=== PATIENT | male | born 1955 | race Caucasian/White ===

== ENCOUNTER 2017-08-25 21:05 | Outpatient (CLI) | payer SELFPAY | END 2017-08-25 21:06 | disposition EMS.NT | LOC: EMS 21:05 | PROVIDERS: ATTEND Surgery | DX: S01.01XA Laceration without foreign body of scalp, initial encounter (principal); R47.81 Slurred speech; W07.XXXA Fall from chair, initial encounter; Y92.009 Unspecified place in unspecified non-institutional (private) residence as the place of occurrence of the external cause; Z72.89 Other problems related to lifestyle ==

== ENCOUNTER 2018-01-20 18:15 | Outpatient (CLI) | payer SELFPAY | END 2018-01-20 18:16 | disposition critical access hospital (66) | LOC: EMS 18:15 | PROVIDERS: ATTEND Surgery | DX: R56.9 Unspecified convulsions (principal); R51 Headache; R53.1 Weakness; R29.810 Facial weakness | CPT/HCPCS: A0425; A0427 ==

== ENCOUNTER 2018-01-20 18:38 | Emergency (ER) | payer SELFPAY ==
--- NOTE | 2018-01-20 18:47 | ED Physician Documentation ---
PD HPI FOCAL NEURO - Stated complaint Stated Complaint: SZ/WEAKNESS - Chief complaint Chief Complaint: Neuro - History obtained from History obtained from: Patient, EMS - History of Present Illness Timing - onset: Today (This is a 62-year-old gentleman with history of stroke in 2011 with right-sided symptoms it was preceded by seizure at the time. It sounds like he had bilateral carotid endarterectomy done then. His only prescription medication is aspirin. It was passed on to me by EMS that the family says he is a heavy drinker. Tonight around 545 he had a seizure for about 5 minutes which was followed with left facial droop and left-sided weakness. He says he had a mild headache earlier in the day but prior to that it was a normal day. He says he has not had a seizure since 2011 and is not maintained on antiepileptic drugs.) Review of Systems Ten Systems: 10 systems reviewed and negative Constitutional: denies: Fever, Chills Eyes: denies: Loss of vision, Decreased vision Ears: denies: Loss of hearing, Ear pain Nose: denies: Rhinorrhea / runny nose, Congestion Cardiac: denies: Chest pain / pressure, Palpitations Respiratory: denies: Dyspnea, Cough GI: denies: Abdominal Pain PD PAST MEDICAL HISTORY - Past Medical History Past Medical History: Yes Neuro: CVA - Present Medications Home Medications: Ambulatory Orders Medication Instructions Recorded Confirmed RX: Aspirin [Adult Aspirin Regimen] 1 tab PO DAILY 01/20/18 01/20/18 - Allergies Allergies/Adverse Reactions: Allergies Allergy/AdvReac Type Severity Reaction Status Date / Time No Known Drug Allergies Allergy Unverified 01/20/18 18:38 - Living Situation Living Situation: reports: With spouse/s.o. - Social History Does the pt smoke?: Yes Smoking Status: Current every day smoker Does the pt drink ETOH?: Yes ETOH Use: Beer, Liquor - Family History Family history: reports: Non contributory PD ED PE NORMAL - Vitals Vital signs reviewed: Yes (Hypertensive and tachycardic) - General General: Alert and oriented X 3, No acute distress - HEENT HEENT: PERRL, EOMI - Neck Neck: Supple, no meningeal sign, No bony TTP - Cardiac Cardiac: RRR, No murmur - Respiratory Respiratory: No respiratory distress, Clear bilaterally - Abdomen Abdomen: Normal bowel sounds, Soft, Non tender - Back Back: No CVA TTP, No spinal TTP - Derm Derm: Normal color, Warm and dry - Extremities Extremities: No edema, No calf tenderness / cord - Neuro Neuro: Alert and oriented X 3, Normal speech Eye Opening: Spontaneous Motor: Obeys Commands Verbal: Oriented GCS Score: 15 NIHSS - Time Time: 18:40 - Level of Consciousness Level of consciousness: (0) Alert, Keenly responsive LOC Questions: (0) Answers both Q's correct LOC Commands: (0) Performs both correctly - Gaze Best Gaze: (0) Normal - Visual Visual: (0) No loss - Facial Palsy Facial Palsy: (1) Minor paralysis (On the left) - Motor Arms (both separate) Motor Arm (right): (0) No drift Motor Arm (left): (1) Drift - Motor Legs (both separate) Motor Leg (right): (0) No drift Motor Leg (left): (1) Drift - Limb Ataxia Limb Ataxia: (0) Absent - Sensory Sensory: (1) Kesk-rh-voyjwezs loss - Best Language Best Language: (0) No aphasia - Dysarthria Dysarthria: (0) Normal - Extinction and Inattention (formally neg Extinction and inattention: (0) No abnormality - Total Score/Results Total Score/Result: 4 Results - Vitals Vitals: Vital Signs - 24 hr 01/20/18 01/20/18 01/20/18 18:38 19:12 20:04 Temperature 36.7 C Heart Rate 111 H 106 H 92 Respiratory 18 22 22 Rate Blood Pressure 231/116 H 209/107 H 213/106 H O2 Saturation 95 95 96 01/20/18 01/20/18 21:05 22:00 Temperature Heart Rate 86 90 Respiratory 15 22 Rate Blood Pressure 209/107 H 192/117 H O2 Saturation 96 92 Oxygen O2 Source Room air - EKG (time done) 1901 Rate: Rate (enter#) (105) Rhythm: Sinus tachycardia, LAE [place]: Normal Intervals: Normal DC QRS: Normal Ischemia: Q waves (waves) Computer interpretation: Agree with computer - Labs Labs: Laboratory Tests 01/20/18 01/20/18 01/20/18 18:45 18:45 18:45 WBC 9.8 RBC 5.42 Hgb 19.2 H Hct 55.6 H MCV 102.7 H MCH 35.5 H MCHC 34.6 RDW 14.9 Plt Count 273 MPV 7.5 Neut # (Auto) 5.8 Lymph # (Auto) 2.6 [place] # (Auto) 0.9 Eos # (Auto) 0.3 Baso # (Auto) 0.1 Absolute Nucleated RBC 0.00 Nucleated RBC % 0.1 PT 11.9 INR 1.1 Sodium 139 Potassium 3.6 Chloride 103 Carbon Dioxide 28 Anion Gap 8.0 BUN 10 Creatinine 0.7 Estimated GFR (MDRD) 114 Glucose 170 H Calcium 9.2 Total Bilirubin 0.6 AST 18 ALT 12 Alkaline Phosphatase 130 H Total Protein 7.3 Albumin 3.1 L Globulin 4.2 Albumin/Globulin Ratio 0.7 L Lipase 72 H Ethyl Alcohol < 5.0 - Rads (name of study) CT Chest with contrast Radiology: EMP read contemporaneously (6.1 cm right upper lobe mass) CT Head Radiology: EMP read contemporaneously (No evidence of acute stroke, he does have an abnormality on the right side which could be old stroke but in discussion with the stroke neurologist it is atypical because it respects the hernandes-white boundary.) CT head with contrast Radiology: EMP read contemporaneously (Findings consistent with parenchymal and bony metastasis with the largest in the right posterior lateral frontal region measuring 2.5 cm. No associated hemorrhage or mass-effect at this time.) Single view chest Radiology: EMP read contemporaneously (Masslike lesion on the right side) PD MEDICAL DECISION MAKING - ED course ED course: 32-year-old gentleman with potential stroke preceded by seizure. Time of onset 5:45 PM tonight. Of note paramedics tell me he has already significantly improved here. They said he recently had a forced right gaze deviation when they initially evaluated him and could not move his left arm at all. At this point he still has some residual symptoms in the left arm, but no gaze deviation. The family relates to me that he has been trying to cut back on drinking lately and only had one beer tonight which is very light for him on a weekend. Given all of this, I suspect he had an alcohol withdrawal seizure followed by a Dhiraj's paralysis which is resolving. After my initial evaluation I just did discuss the case with Dr. Simms, stroke neurology at [facility] who did not immediately recommend TPA but she will view the CT images and call me back. She felt the CT images were actually not consistent with an old stroke because they respect the hernandes-white junction. About that time his chest x-ray was noted and looks very concerning for lung cancer. He was sent back for CT, to do contrast-enhanced head and chest. Results as shown. Bottom line, it seems like he probably has primary lung cancer with metastases to the head causing a seizure today. He was loaded with [employer] and [facility] was called again for potential transfer, Dr. Simms had told me previously that if it was a Brain tumor he would go to the neurosurgical services and they were paged. Case was discussed with the neurosurgeon and he deferred to the hospitalist for admission. He was accepted to [facility] by Dr. Canseco at 10 PM and cobras were completed. - Sepsis Event Vital Signs: Vital Signs - 24 hr 01/20/18 01/20/18 01/20/18 18:38 19:12 20:04 Temperature 36.7 C Heart Rate 111 H 106 H 92 Respiratory 18 22 22 Rate Blood Pressure 231/116 H 209/107 H 213/106 H O2 Saturation 95 95 96 01/20/18 01/20/18 21:05 22:00 Temperature Heart Rate 86 90 Respiratory 15 22 Rate Blood Pressure 209/107 H 192/117 H O2 Saturation 96 92 Oxygen O2 Source Room air Departure - Departure Disposition: 02 Transfer Acute Care Hosp Clinical Impression: Seizure, Lung cancer, Brain metastases Condition: Serious
[2018-01-20 18:51] LABS: BASOPHILS # (AUTO) 0.1 10^3/uL (0.0-0.1); BASOPHILS % (AUTO) 1.3 %; EOSINOPHILS # (AUTO) 0.3 10^3/uL (0.0-0.7); EOSINOPHILS % (AUTO) 3.6 %; HGB - HEMOGLOBIN 19.2 g/dL (14.0-18.0); LYMPHOCYTES # (AUTO) 2.6 10^3/uL (1.5-3.5); LYMPHOCYTES % (AUTO) 26.4 %; MEAN CORPUSCULAR HEMOGLOBIN 35.5 pg (27.0-31.0); MEAN CORPUSCULAR HGB CONC 34.6 g/dL (32.0-36.0); MEAN CORPUSCULAR VOLUME 102.7 fL (80.0-94.0); MEAN PLATELET VOLUME 7.5 fL (7.4-11.4); MONOCYTES # (AUTO) 0.9 10^3/uL (0.0-1.0); MONOCYTES % (AUTO) 9.4 %; NEUTROPHILS # (AUTO) 5.8 10^3/uL (1.5-6.6); NEUTROPHILS % (AUTO) 59.3 %; PLT - PLATELET COUNT 273 10^3/uL (130-450); RED BLOOD COUNT 5.42 10^6/uL (4.70-6.10); RED CELL DISTRIBUTION WIDTH 14.9 % (12.0-15.0); WHITE BLOOD COUNT 9.8 x10^3/uL (4.8-10.8)
[2018-01-20 19:04] LABS: ALBUMIN 3.1 g/dL (3.2-5.5); ALKALINE PHOSPHATASE 130 IU/L (42-121); ALT ALANINE AMINOTRANSFERASE 12 IU/L (10-60); AST ASPARTATE AMINOTRANSFERASE 18 IU/L (10-42); BILIRUBIN,TOTAL 0.6 mg/dL (0.2-1.0); BUN - BLOOD UREA NITROGEN 10 mg/dL (6-20); CALCIUM 9.2 mg/dL (8.5-10.3); CARBON DIOXIDE - CO2 28 mmol/L (21-32); CHLORIDE 103 mmol/L (101-111); CREATININE 0.7 mg/dL (0.6-1.2); GFR - MDRD 114 (>89); GLUCOSE 170 mg/dL (70-100); SODIUM 139 mmol/L (135-145); TOTAL PROTEIN 7.3 g/dL (6.7-8.2)
--- NOTE | 2018-01-20 19:04 | CT Report ---
Reason: CVA Procedure Date: 01/20/2018 Accession Number: [id number] / [id number] Procedure: CT - Head W/O Stroke Protocol CPT Code: FULL RESULT: EXAM: CT HEAD EXAM DATE: 01/20/2018 06:54 PM. CLINICAL HISTORY: Acute stroke protocol. History of seizures and stroke. COMPARISON: None. TECHNIQUE: Multiaxial CT images were obtained from the foramen magnum to the vertex. Reformats: Coronal. IV contrast: None. In accordance with CT protocol optimization, one or more of the following dose reduction techniques were utilized for this exam: automated exposure control, adjustment of mA and/or KV based on patient size, or use of iterative reconstructive technique. FINDINGS: Parenchyma: Areas of encephalomalacia in the right frontoparietal and anteroinferior right frontal cortex, likely representing sequela of remote infarct. Moderate patchy white matter hypoattenuation elsewhere, compatible with chronic small vessel ischemic change. No intraparenchymal hemorrhage, mass effect, or CT findings of evolving acute/subacute infarct. Mello-white differentiation is distinct. Extraaxial Spaces: Normal for age. No subdural or epidural collections identified. Ventricles: Normal in size and position. Sinuses and Orbits: Imaged paranasal sinuses, orbits, and mastoids show no significant abnormality. Bones: No evidence of fracture or calvarial defect. Other: Atherosclerotic calcifications in the bilateral cavernous internal carotid and vertebral arteries. IMPRESSION: 1. Probable remote infarcts in the right frontoparietal and anteroinferior right frontal cortex. 2. Moderate chronic microvascular angiopathy. 3. No CT evidence for acute intracranial abnormality. RADIA The above findings were discussed with Carlos Eduardo Yanez by Dr. Dee Dennis at 19:01 hrs on 01/20/18.
[2018-01-20 19:05] LABS: ALBUMIN/GLOBULIN RATIO 0.7 (1.0-2.2); INR 1.1 (0.8-1.2); LIPASE 72 U/L (22-51); PT - PROTHROMBIN TIME 11.9 secs (9.9-12.6)
--- NOTE | 2018-01-20 19:18 | XRAY Report ---
Reason: chest pain Procedure Date: 01/20/2018 Accession Number: [id number] / [id number] Procedure: XR - Chest 1 View X-Ray CPT Code: 69661 FULL RESULT: EXAM: CHEST RADIOGRAPHY EXAM DATE: 01/20/2018 07:00 PM. CLINICAL HISTORY: Chest pain. COMPARISON: None. TECHNIQUE: 1 view. FINDINGS: Lungs/Pleura: Masslike consolidation in the right perihilar region. No pleural effusion or pneumothorax. Mediastinum: Normal cardiomediastinal contour. Atherosclerotic calcifications within the aortic arch. Other: The bones are unremarkable. IMPRESSION: Masslike consolidation in the right perihilar region. If the patient has symptoms of infection, recommend follow-up imaging 6-8 weeks after treatment to ensure resolution. Otherwise, recommend contrast-enhanced CT chest to evaluate for infiltrate versus mass. RADIA
[2018-01-20] MEDS ORDERED: IOPAMIDOL-300 100 ML VIAL ONE (19:21)
[2018-01-20] MEDS ORDERED: IOPAMIDOL-300 100 ML VIAL IVP ONE (20:09)
--- NOTE | 2018-01-20 20:26 | CT Report ---
Reason: CVA sx, ?met Procedure Date: 01/20/2018 Accession Number: [id number] / [id number] Procedure: CT - Head W/ CPT Code: FULL RESULT: EXAM: CT HEAD WITH CONTRAST COMPARISON: CT head without, 01/20/2018. CLINICAL HISTORY: Stroke symptoms, concern for metastasis TECHNIQUE: Axial CT images were obtained from the foramen magnum to the vertex after intravenous contrast. In accordance with CT protocol optimization, one or more of the following dose reduction techniques were utilized for this exam: automated exposure control, adjustment of mA and/or KV based on patient size, or use of iterative reconstructive technique. FINDINGS: A blastic focus is demonstrated involving the left orbital roof (8, 17), measuring approximately 2 cm. Additional areas of bony irregularity are demonstrated, concerning for an additional small bony metastasis. There is parenchymal edema, with enhancing foci demonstrated: 1. Right lateral frontal measuring 2.5 cm (8, 30) 2. Right inferior frontal measuring 6 mm (8, 15) 3. Left cerebellar measuring 5 mm (8, 13). Visualized orbits, paranasal sinuses and mastoids are otherwise relatively unremarkable, there is a hypoplastic left maxillary sinus. IMPRESSION: Findings most concordant with parenchymal and bony metastasis, as detailed, largest in the right posterior lateral frontal region measuring 2.5 cm. No hemorrhage or mass-effect at this time.
--- NOTE | 2018-01-20 20:40 | CT Report ---
Reason: abn cxr Procedure Date: 01/20/2018 Accession Number: [id number] / [id number] Procedure: CT - Chest W/ CPT Code: FULL RESULT: EXAM: CT CHEST EXAM DATE: 01/20/2018 08:06 PM. CLINICAL HISTORY: Abnormal chest x-ray COMPARISONS: 01/20/2018 chest x-ray. TECHNIQUE: Routine helical CT imaging was performed through the chest. IV contrast: 100 mL Isovue-300. Reconstructions: Coronal and sagittal. In accordance with CT protocol optimization, one or more of the following dose reduction techniques were utilized for this exam: automated exposure control, adjustment of mA and/or KV based on patient size, or use of iterative reconstructive technique. FINDINGS: Lungs/Pleura: There is a 6.1 x 5.1 cm area of right upper lobe masslike airspace consolidation. This extends to the hilum. The left lung is clear. No pleural effusion or pneumothorax. Mediastinum: There is a 1.1 cm in short axis precarinal lymph node with several additional subcentimeter mediastinal lymph nodes. Normal heart size. Coronary artery and aortic calcifications present. No aortic aneurysm or dissection. Bones: Unremarkable. Visualized Abdomen: Large bowel diverticulosis. Other: None. IMPRESSION: 1. There is a 6.1 cm area of right upper lobe masslike airspace consolidation with borderline mediastinal lymphadenopathy. This may be secondary to pneumonia in the appropriate clinical context and may be followed up by chest x-ray after appropriate treatment interval. If clinical suspicion for malignancy is high then PET CT or tissue sampling recommended. 2. Coronary artery calcifications. RADIA
[2018-01-20] MEDS ORDERED: HYDROcod/ACETAM 5/325 MG TABLET PO STA (20:51)
[2018-01-20] MEDS ORDERED: levETIRAcetam INJ 1,000 MG in SODIUM CHLORIDE 0.9% 100ML 100 ML IV STA (20:51)
[2018-01-20] MEDS ORDERED: NICOTINE 21 MG PATCH TOP STA (20:51)
[2018-01-20] MEDS ORDERED: DEXAMETHASONE 10 MG/ML VIAL IVP STA (23:56)
[2018-01-21] MEDS ORDERED: METOPROLOL 5 MG/5 ML VIAL IVP STA (07:33)
--- NOTE | 2018-01-21 07:36 | ED Physician Documentation ---
ED Addendum - Addendum Addendum: 01/21/18 07:34 assumed care 7 AM 62 male seen yesterday for seizure and focal weakness and unfortunately found to have what appears to be primary lung cancer met to brain case d/w [facility] - pt accepted by hospitalist service, waiting on [facility] for bed confirmation still per Dr Yanez note pt is a heavy drinker - will watch for s/sx withdrawal also his blood pressure is insanely high - gave lopressor went to see pt he feels fine denies pain - no BAIRD CP etc his weakness has resolved, we talked about EtOH withdrawal - he says he has cut down recently - has no shakes etc at this time - he will let us know if any develop A&O X 3 PERRL EOMI RRR CTAB non focal neuro no facial droop, nl ext strength, nl EOMI will continue to wait for bed availability at [facility] 01/21/18 07:47
[2018-01-21] MEDS ORDERED: METOPROLOL TARTRATE 50 MG TABLET PO STA (08:15)
[2018-01-21] MEDS ORDERED: levETIRAcetam INJ 500 MG in SODIUM CHLORIDE 0.9% 100ML 100 ML IV STA (12:17)
[2018-01-21 17:26] VITALS: BP 175/109
== END 2018-01-21 16:15 | disposition short-term general hospital (02) ==
LOC: EDUNIT# → ED 18:38
DX: R56.9 Unspecified convulsions (principal); C34.90 Malignant neoplasm of unspecified part of unspecified bronchus or lung; C79.31 Secondary malignant neoplasm of brain; R03.0 Elevated blood-pressure reading, without diagnosis of hypertension; I69.30 Unspecified sequelae of cerebral infarction; F17.200 Nicotine dependence, unspecified, uncomplicated
CPT/HCPCS: 36415; 70450; 70460; 71045; 71260; 80053; 80320; 83690; 85025; 85610; 93005; 96365; 96366; 96375; 99285; A9270; Q9967

== ENCOUNTER 2018-01-21 18:19 | Outpatient (CLI) | payer SELFPAY | END 2018-01-21 18:20 | disposition short-term general hospital (02) | LOC: EMS 18:19 | PROVIDERS: ATTEND Surgery | DX: R53.1 Weakness (principal); R56.9 Unspecified convulsions | CPT/HCPCS: A0425; A0426 ==

== ENCOUNTER 2018-05-01 09:54 | Outpatient (CLI) | payer OTHER ==
[2018-05-01] MEDS ORDERED: GADOBUTROL 10 MMOL/10 ML VIAL ONE (10:04)
--- NOTE | 2018-05-01 13:40 | MRI Report ---
Reason: REIMAGE BRAIN METS AFTER GAMMA KNIFE Procedure Date: 05/01/2018 Accession Number: [id number] / [id number] Procedure: MRI - Brain W/WO CPT Code: FULL RESULT: EXAM: MRI BRAIN WITHOUT AND WITH CONTRAST EXAM DATE: 05/01/2018 11:03 AM. CLINICAL HISTORY: 62-year-old man with brain metastases status post gamma knife radiosurgery. COMPARISON: MR BRAIN WITH CONTRAST 02/27/2018 5:19 PM. TECHNIQUE: Multiplanar, multisequence T1-weighted and fluid-sensitive MR sequences of the brain were performed. Sequences optimized for routine evaluation. Other: None. IV Contrast: . FINDINGS: Parenchyma: The following enhancing lesions are demonstrated: (Images correspond to series 1102) 1. Left cerebellar hemisphere, image 24. 6 x 5 mm, previously 8 x 6 mm. 2. Right cerebellar hemisphere, image 24. 2 mm, not significantly changed. 3. Right cerebellar vermis, image 43. 8 x 8 mm, previously 12 x 11 mm. 4. Right inferior frontal lobe, image 57. 4 x 3 mm, previously 10 x 8 mm. 5. Right precentral gyrus, image 96. 16 x 15 mm, previously 25 x 20 mm. No new lesions are identified. FLAIR hyperintensity surrounds the larger lesions, greatest surrounding the right precentral gyrus lesion. Irregular enhancing lesion in the left caudate head and adjacent putamen is decreased in size with ill-defined margins, favoring evolving subacute to chronic infarct. There is ill-defined hemosiderin deposition within this lesion. Otherwise, the parenchyma demonstrates moderate burden of nonspecific FLAIR hyperintensities in the deep cerebral and periventricular white matter. Defects in the inferior cerebral hemispheres bilaterally and right basal ganglia likely reflect remote lacunar infarcts. Susceptibility weighted sequence demonstrates remote microhemorrhages in the left frontal operculum and right posterior basal ganglia. No evidence of acute infarct. Pituitary: Unremarkable. Ventricles and Extra-axial Spaces: The ventricles are unchanged in size and configuration with asymmetric dilation of the left ventricle, especially the frontal horn. Enhancing lesions described above all are in close proximity to the extra-axial space. Orbits: Unremarkable. Sinuses: The left maxillary sinus is atelectatic and demonstrates mild mucosal thickening. There are bilateral mastoid effusions. Major Vascular Flow Voids: Intact. Dural Venous Sinuses and Major Central Veins: The visualized dural venous sinuses are patent on post-contrast images. IMPRESSION: 1. 5 enhancing lesions are again demonstrated in the supratentorial and infratentorial parenchyma, consistent with metastases and generally decreased in size compared to the 02/27/2018 exam, consistent with response to therapy. No new lesions are identified. 2. Enhancing lesion in the left basal ganglia is decreased in size with ill-defined margins, favoring evolving subacute to chronic infarct. RADIA
== END 2018-05-01 09:55 | disposition home or self-care (01) ==
LOC: DI 09:54
PROVIDERS: ATTEND Internal Medicine Medical Oncology
DX: C34.11 Malignant neoplasm of upper lobe, right bronchus or lung (principal); C79.31 Secondary malignant neoplasm of brain; G93.9 Disorder of brain, unspecified
CPT/HCPCS: 70553; A9585

== ENCOUNTER 2018-08-09 10:34 | Outpatient (CLI) | payer OTHER ==
[~2018-08-09 10:34] MED LIST: IOVERSOL 320 100 ML VIAL IVP ONE; IOVERSOL 320 50 ML VIAL ONE
--- NOTE | 2018-08-09 13:22 | CT Report ---
Reason: MALIGNANT NEOPLASM OF UNSP PART OF UNSP BRONCHUS O Procedure Date: 08/09/2018 Accession Number: [id number] / [id number] Procedure: CT - CHEST W CPT Code: FULL RESULT: EXAM: CT CHEST EXAM DATE: 08/09/2018 12:04 PM. CLINICAL HISTORY: Restaging central right upper lobe lung cancer. COMPARISONS: CHEST W/ 01/20/2018 7:47 PM. TECHNIQUE: Routine helical CT imaging was performed through the chest. IV contrast: None. Reconstructions: Coronal and sagittal. In accordance with CT protocol optimization, one or more of the following dose reduction techniques were utilized for this exam: automated exposure control, adjustment of mA and/or KV based on patient size, or use of iterative reconstructive technique. FINDINGS: Lungs/Pleura: There is been interval decrease in size of the central right upper lobe neoplasm that is contiguous with the right hilum. Current dimensions are 3.9 x 5.2 cm diameter. Previous dimensions to my measurements were 6.2 x 7.4 cm. There is mild treatment related volume loss. The lungs are otherwise clear. Mediastinum: No pathologic adenopathy. The right pretracheal lymph node has short axis of 7 mm which is typical for this site. Bones: Unremarkable. Visualized Abdomen: Unremarkable. No evidence of adrenal metastasis. Other: None. IMPRESSION: 1. Significant interval decrease in size of central right upper lobe neoplasm that is confluent with the right hilum, as described above. 2. No other abnormal pulmonary parenchymal abnormality. 3. No pathologic mediastinal adenopathy RADIA
--- NOTE | 2018-08-09 13:36 | CT Report ---
Reason: MALIGNANT NEOPLASM OF UNSP PART OF UNSP BRONCHUS O Procedure Date: 08/09/2018 Accession Number: [id number] / [id number] Procedure: CT - Abdomen/Pelvis W CPT Code: FULL RESULT: EXAM: CT ABDOMEN AND PELVIS EXAM DATE: 08/09/2018 12:04 PM. CLINICAL HISTORY: Restaging right lung cancer. COMPARISONS: CHEST W/ 08/09/2018 11:52 AM, and CT chest 01/20/2018. TECHNIQUE: Routine helical CT imaging was performed through the abdomen and pelvis. IV contrast: CE. Enteric contrast: No. Reconstructions: Coronal and sagittal. In accordance with CT protocol optimization, one or more of the following dose reduction techniques were utilized for this exam: automated exposure control, adjustment of mA and/or KV based on patient size, or use of iterative reconstructive technique. FINDINGS: Lung Bases: Unremarkable. Liver: Normal. No masses. Gallbladder/Bile Ducts: Unremarkable. Spleen: Normal. Pancreas: Normal. Adrenal Glands: Normal. Kidneys: Normal. No masses or hydronephrosis. Peritoneal Cavity/Bowel: Normal. No free fluid, free air or adenopathy. No masses or acute inflammatory process. The appendix is well visualized and normal. Pelvic Organs: Normal. The bladder and visualized pelvic organs are within normal limits. Vasculature: There is a fusiform distal infrarenal abdominal aortic aneurysm measuring 3.7 x 3.2 cm diameter in axial plane. There is a mild degree of peripheral thrombus. Diffuse arterial calcification elsewhere. Bones: No suspicious bone lesion age-indeterminate probably old superior endplate compression fracture at T12. Advanced degenerative disease at L2-L3 without subluxation. Other: None. IMPRESSION: 1. No evidence of metastatic disease. 2. There is an approximate 3.7 cm maximal diameter fusiform infrarenal abdominal aortic aneurysm. Consider baseline abdominal aortic ultrasound for future comparison purposes. RADIA
[2018-08-13] MEDS ORDERED: IOVERSOL 320 100 ML VIAL IVP ONE (15:28)
[2018-08-13] MEDS ORDERED: IOVERSOL 320 50 ML VIAL PO ONE (15:28)
== END 2018-08-09 10:35 | disposition home or self-care (01) ==
LOC: DI 10:34
PROVIDERS: ATTEND Nurse Practitioner Adult Health
DX: C34.90 Malignant neoplasm of unspecified part of unspecified bronchus or lung (principal); I71.4 Abdominal aortic aneurysm, without rupture
CPT/HCPCS: 71260; 74177; Q9967

== ENCOUNTER 2018-08-12 11:53 | Emergency (ER) | payer OTHER ==
[2018-08-12] MEDS ORDERED: SODIUM CHLORIDE 0.9% 1,000 ML IV ONE ×2 (12:15)
--- NOTE | 2018-08-12 13:08 | ED Physician Documentation ---
PD HPI MALE - Stated complaint Stated Complaint: MALE - Chief complaint Chief Complaint: Abd Pain - History obtained from History obtained from: Patient - History of Present Illness Timing - onset: Last night (6 days of constipation without BM and urinary retention since last night.) Review of Systems Constitutional: denies: Fever, Chills, Myalgias Ears: reports: Reviewed and negative Throat: reports: Reviewed and negative Cardiac: reports: Reviewed and negative GI: reports: Abdominal Pain, Constipation. denies: Nausea, Vomiting PD PAST MEDICAL HISTORY - Past Medical History Cardiovascular: Hypertension Respiratory: None Neuro: CVA Endocrine/Autoimmune: None GI: None : None HEENT: None Psych: None Musculoskeletal: None Derm: None - Present Medications Home Medications: Ambulatory Orders Medication Instructions Recorded Confirmed Folic Acid 1 mg PO DAILY 06/12/18 08/12/18 Levetiracetam [Keppra] 750 mg PO BID 06/12/18 08/12/18 Magnesium 500 mg PO DAILY 06/12/18 08/12/18 Lactulose [Generlac] 10 gm PO QID #150 ml 08/12/18 Ondansetron HCl [Zofran] 8 mg ORAL PRN PRN 08/12/18 08/12/18 - Allergies Allergies/Adverse Reactions: Allergies Allergy/AdvReac Type Severity Reaction Status Date / Time No Known Drug Allergies Allergy Verified 08/12/18 11:59 - Social History Does the pt smoke?: Yes Smoking Status: Current every day smoker Does the pt drink ETOH?: Yes Does the pt have substance abuse?: No - Family History Family history: reports: Non contributory - Immunizations Immunizations are current?: Yes - POLST Patient has POLST: No PD ED PE NORMAL - Vitals Vital signs reviewed: Yes - General General: Alert and oriented X 3, No acute distress - Respiratory Respiratory: No respiratory distress, Clear bilaterally - Abdomen Abdomen: Soft, Non tender - Rectal Rectal: Other (On rectal examination he does have a firm brown fecal impaction, and enema was placed during examination.) - Extremities Extremities: No edema, No calf tenderness / cord - Neuro Neuro: Alert and oriented X 3, Normal speech Results - Vitals Vitals: Vital Signs - 24 hr 08/12/18 08/12/18 08/12/18 11:58 12:51 13:01 Temperature 36 C L Heart Rate 92 92 87 Respiratory 18 16 18 Rate Blood Pressure 102/70 152/81 H 152/81 H O2 Saturation 100 97 99 Oxygen O2 Source Room air - Labs Labs: Laboratory Tests 08/12/18 08/12/18 14:45 14:45 WBC 8.7 RBC 3.38 L Hgb 10.7 L Hct 31.7 L MCV 93.7 MCH 31.6 H MCHC 33.7 RDW 20.9 H Plt Count 232 MPV 7.3 L Manual Slide Review Indicated Sodium 134 L Potassium 3.8 Chloride 94 L Carbon Dioxide 31 Anion Gap 9.0 BUN 23 H Creatinine 0.7 Estimated GFR (MDRD) 114 Glucose 122 H Calcium 9.4 Total Bilirubin 0.8 AST 21 ALT 10 Alkaline Phosphatase 145 H Total Protein 6.7 Albumin 3.3 Globulin 3.4 Albumin/Globulin Ratio 1.0 Lipase 29 PD MEDICAL DECISION MAKING - ED course ED course: 62-year-old gentleman with urinary retention seemingly due to a fecal impaction. After Manual disimpaction and enemas he was able to move his bowels and his bladder. Departure - Departure Disposition: 01 Home, Self Care Clinical Impression: Fecal impaction Condition: Good Record reviewed to determine appropriate education?: Yes Instructions: ED Impaction Fecal Treated Prescriptions: Lactulose [Generlac] 10 gm PO QID #150 ml Comments: Call your doctor to arrange a follow-up appointment, make the next available appointment. In the interim, return anytime if worse or if new symptoms develop.
[2018-08-12] MEDS ORDERED: ALTEPLASE 2 MG VIAL IC ONE (14:10)
[2018-08-12] MEDS ORDERED: MAGNESIUM CITRATE 296 ML BOTTLE PO STA (14:31)
[2018-08-12] MEDS ORDERED: BISACODYL 5 MG TABLET PO STA (14:31)
[2018-08-12 14:58] LABS: BASOPHILS % (AUTO) 0.5 %; EOSINOPHILS % (AUTO) 1.3 %; HGB - HEMOGLOBIN 10.7 g/dL (14.0-18.0); LYMPHOCYTES % (AUTO) 12.3 %; MEAN CORPUSCULAR HEMOGLOBIN 31.6 pg (27.0-31.0); MEAN CORPUSCULAR HGB CONC 33.7 g/dL (32.0-36.0); MEAN CORPUSCULAR VOLUME 93.7 fL (80.0-94.0); MEAN PLATELET VOLUME 7.3 fL (7.4-11.4); NEUTROPHILS % (AUTO) 83.9 %; PLT - PLATELET COUNT 232 10^3/uL (130-450); RED BLOOD COUNT 3.38 10^6/uL (4.70-6.10); RED CELL DISTRIBUTION WIDTH 20.9 % (12.0-15.0); WHITE BLOOD COUNT 8.7 x10^3/uL (4.8-10.8)
[2018-08-12 15:00] LABS: ABNORMAL LYMPHS % (MANUAL) 0 %
[2018-08-12 15:09] LABS: ALBUMIN 3.3 g/dL (3.2-5.5); BILIRUBIN,TOTAL 0.8 mg/dL (0.2-1.0); CALCIUM 9.4 mg/dL (8.5-10.3); CREATININE 0.7 mg/dL (0.6-1.2); TOTAL PROTEIN 6.7 g/dL (6.7-8.2)
[2018-08-12 15:43] LABS: BAND NEUTROPHILS % (MANUAL) 1 %; BASOPHILS # (MANUAL) 0.1 10^3/uL (0-0.1); BASOPHILS % (MANUAL) 1 %; EOSINOPHILS # (MANUAL) 0.2 10^3/uL (0-0.7); LYMPHOCYTES # (MANUAL) 1.1 10^3/uL (1.5-3.5); LYMPHOCYTES % (MANUAL) 13 %; MONOCYTES # (MANUAL) 0.2 10^3/uL (0.0-1.0); NEUTROPHILS # (MANUAL) 7.1 10^3/uL (1.5-6.6); NEUTROPHILS % (MANUAL) 81 %
[2018-08-12 15:44] LABS: DIFFERENTIAL COMMENT MANUAL DIFFERENTIAL; PLATELET ESTIMATE, MANUAL NORMAL (130-450,000) (NORMAL); PLATELET MORPHOLOGY NORMAL APPEARANCE (NORMAL); RBC MORPHOLOGY (MULTIPLE) 1+ ANISOCYTOSIS (NORMAL)
[2018-08-12 15:52] VITALS: BP 188/97
== END 2018-08-12 15:52 | disposition home or self-care (01) ==
LOC: ED 11:53
DX: K56.41 Fecal impaction (principal); R33.9 Retention of urine, unspecified; I10 Essential (primary) hypertension; F17.200 Nicotine dependence, unspecified, uncomplicated
CPT/HCPCS: 36415; 80053; 83690; 85025; 96360; 96361; 99283; A9270; J2997

== ENCOUNTER 2018-09-10 13:36 | Emergency (ER) | payer OTHER ==
[2018-09-10] MEDS ORDERED: SODIUM CHLORIDE 0.9% 1,000 ML IV ONE (13:51)
--- NOTE | 2018-09-10 13:53 | ED Physician Documentation ---
History of Present Illness - Stated complaint Stated Complaint: ALOC/WEAKNESS - Chief complaint Chief Complaint: General - History obtained from History obtained from: Patient, Family ( mostly) - History of Present Illness Timing: Last night (62-year-old gentleman with history of stroke and more recently history of lung cancer with mets to brain undergoing immunotherapy presents with altered mental status that started gradually last night with hallucinations. For example he looked at the cable modem next to the TV today and told the that it was scanning her. He thought someone is in the room with them. He does seem fairly altered and minimal history is available from the patient. He is been incontinent and having urinary frequency as well. No reported fevers.) Review of Systems Unable to obtain: AMS PD PAST MEDICAL HISTORY - Past Medical History Cardiovascular: Hypertension Respiratory: None Neuro: CVA Endocrine/Autoimmune: None GI: None : None HEENT: None Psych: None Musculoskeletal: None Derm: None - Past Surgical History Past Surgical History: Yes - Present Medications Home Medications: Ambulatory Orders Medication Instructions Recorded Confirmed Folic Acid 1 mg PO DAILY 06/12/18 09/05/18 Levetiracetam [Keppra] 750 mg PO BID 06/12/18 09/05/18 Magnesium 500 mg PO DAILY 06/12/18 09/05/18 Lactulose [Generlac] 10 gm PO QID #150 ml 08/12/18 09/05/18 Ondansetron HCl [Zofran] 8 mg ORAL PRN PRN 08/12/18 09/05/18 Megestrol Acetate 20 ml PO DAILY #500 ml 09/10/18 - Allergies Allergies/Adverse Reactions: Allergies Allergy/AdvReac Type Severity Reaction Status Date / Time No Known Drug Allergies Allergy Verified 08/12/18 11:59 - Social History Does the pt smoke?: Yes Smoking Status: Current every day smoker Does the pt drink ETOH?: Yes Does the pt have substance abuse?: No - Immunizations Immunizations are current?: Yes - POLST Patient has POLST: No PD ED PE NORMAL - Vitals Vital signs reviewed: Yes - General General: No acute distress, Other (He is alert and oriented to person, [place] He states that the year is 2018, he cannot state that he is in the hospital or why. 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 No drift in the lower extremities but somewhat tremulous.) Eye Opening: Spontaneous Motor: Obeys Commands Verbal: Confused GCS Score: 14 - Psych Psych: Normal mood, Normal affect Results - Vitals Vitals: Vital Signs - 24 hr 09/10/18 09/10/18 13:38 14:38 Temperature 36.9 C Heart Rate 105 H Respiratory 18 Rate Blood Pressure 111/92 H O2 Saturation 96 Oxygen O2 Source Room air - Labs Labs: Laboratory Tests 09/10/18 09/10/18 09/10/18 14:31 14:31 14:31 WBC 10.5 RBC 3.83 L Hgb 12.3 L Hct 36.1 L MCV 94.1 H MCH 32.1 H MCHC 34.1 RDW 19.7 H Plt Count 289 MPV 7.3 L Neut # (Auto) 7.0 H Lymph # (Auto) 2.0 [place] # (Auto) 1.3 H Eos # (Auto) 0.2 Baso # (Auto) 0.1 Absolute Nucleated RBC 0.00 Nucleated RBC % 0.0 Sodium 136 Potassium 2.9 L Chloride 92 L Carbon Dioxide 30 Anion Gap 14.0 H BUN 22 H Creatinine 1.0 Estimated GFR (MDRD) 75 L Glucose 144 H Calcium 10.0 Total Bilirubin 0.9 AST 21 ALT 12 Alkaline Phosphatase 103 Ammonia 10.4 Total Protein 7.1 Albumin 3.4 Globulin 3.7 Albumin/Globulin Ratio 0.9 L Lipase 30 Urine Color Urine Clarity Urine pH Ur Specific [place] Urine Protein Urine Glucose (UA) Urine Ketones Urine Occult Blood Urine Nitrite Urine Bilirubin Urine Urobilinogen Ur Leukocyte Esterase Urine RBC Urine WBC Ur Squamous Epith Cells Urine Bacteria Urine Casts Ur Microscopic Review Urine Culture Comments Ethyl Alcohol < 5.0 09/10/18 14:54 WBC RBC Hgb Hct MCV MCH MCHC RDW Plt Count MPV Neut # (Auto) Lymph # (Auto) [place] # (Auto) Eos # (Auto) Baso # (Auto) Absolute Nucleated RBC Nucleated RBC % Sodium Potassium Chloride Carbon Dioxide Anion Gap BUN Creatinine Estimated GFR (MDRD) Glucose Calcium Total Bilirubin AST ALT Alkaline Phosphatase Ammonia Total Protein Albumin Globulin Albumin/Globulin Ratio Lipase Urine Color YELLOW Urine Clarity CLEAR Urine pH 6.5 Ur Specific [place] 1.025 Urine Protein >=300 Urine Glucose (UA) NEGATIVE Urine Ketones TRACE Urine Occult Blood TRACE-LYSE Urine Nitrite NEGATIVE Urine Bilirubin NEGATIVE Urine Urobilinogen 0.2 (NORMAL) Ur Leukocyte Esterase NEGATIVE Urine RBC None Seen Urine WBC 0-3 Ur Squamous Epith Cells RARE Squamous Urine Bacteria None Seen Urine Casts 0-2 Hyaline Casts Ur Microscopic Review INDICATED Urine Culture Comments NOT INDICATED Ethyl Alcohol - Rads (name of study) Ct Head Radiology: EMP read contemporaneously (sinus dz, NAD) 2v chest Radiology: EMP read contemporaneously (Stable right upper lobe mass, PICC appears to be in appropriate placement.) PD MEDICAL DECISION MAKING - ED course ED course: This is a 62-year-old gentleman who is on chemotherapy for stage IV lung cancer with mets to the brain. He presents today for some hallucinations. He has depressed mood with poor eye contact. Medical work-up was negative except for hypokalemia which was repleted orally. 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 He basically said he did not want to do this now. The agrees that this is the most likely diagnosis. He was offered observation in the hospital for altered mental status although his mental status did improve with time and IV fluids in the department. Family declined feeling like he would do better at home. Departure - Departure Disposition: 01 Home, Self Care Clinical Impression: Brain metastases, Pseudodementia, Hypokalemia Lung cancer Qualifiers: Laterality: right Lung location: upper lobe of lung Qualified Code(s): C34.11 - Malignant neoplasm of upper lobe, right bronchus or lung Condition: Good Record reviewed to determine appropriate education?: Yes Instructions: Hypokalemia Dc Prescriptions: Megestrol Acetate 20 ml PO DAILY #500 ml Comments: Return anytime if worse. Follow-up with your oncologist next week, primary care this week. Return for new or worsening symptoms. Drink plenty of fluids.
--- NOTE | 2018-09-10 14:29 | CT Report ---
Reason: altered Procedure Date: 09/10/2018 Accession Number: [id number] / [id number] Procedure: CT - HEAD WO CPT Code: FULL RESULT: EXAM: CT HEAD EXAM DATE: 09/10/2018 02:08 PM. CLINICAL HISTORY: Altered. COMPARISON: HEAD W/ 01/20/2018 7:47 PM. TECHNIQUE: Multiaxial CT images were obtained from the foramen magnum to the vertex. Reformats: Sagittal and coronal. IV contrast: None. In accordance with CT protocol optimization, one or more of the following dose reduction techniques were utilized for this exam: automated exposure control, adjustment of mA and/or KV based on patient size, or use of iterative reconstructive technique. FINDINGS: Parenchyma: No intraparenchymal hemorrhage. No evidence of mass, midline shift. Mello-white differentiation is distinct. Extraaxial Spaces: Basal cisterns are preserved. No subdural or epidural collections identified. Ventricles: Normal in size and position. Sinuses and Orbits: Incompletely visualized is a small left maxillary sinus, possibly status post sinus surgery with mucoperiosteal thickening within the left sinus. Orbits and mastoid air cells are within normal limits. Bones: No evidence of fracture or calvarial defect. Other: None. IMPRESSION: Sinus disease with no acute intracranial abnormality detected. RADIA
--- NOTE | 2018-09-10 14:37 | XRAY Report ---
Reason: altered Procedure Date: 09/10/2018 Accession Number: [id number] / [id number] Procedure: XR - Chest 2 View X-Ray CPT Code: 39495 FULL RESULT: EXAM: CHEST RADIOGRAPHY EXAM DATE: 09/10/2018 02:15 PM. CLINICAL HISTORY: Transient alteration in awareness. COMPARISON: CHEST 1 VIEW 01/20/2018 6:51 PM CHEST W/ 08/09/2018 11:52 AM CHEST W/ 01/20/2018 7:47 PM. TECHNIQUE: 2 views. FINDINGS: Lungs/Pleura: As before, there is masslike consolidation in the right perihilar region similar to recent CT 08/09/2018. No new pulmonary opacities demonstrated. The left lung is clear. No effusion, pneumothorax, or vascular congestion. Mediastinum: Heart and mediastinal contours are unremarkable. Other: Right-sided PICC terminates in the lower SVC. IMPRESSION: No acute cardiopulmonary abnormality demonstrated. Grossly stable right perihilar mass compared with recent CT 08/09/2018. RADIA
[2018-09-10 14:43] LABS: BASOPHILS # (AUTO) 0.1 10^3/uL (0.0-0.1); BASOPHILS % (AUTO) 0.9 %; EOSINOPHILS # (AUTO) 0.2 10^3/uL (0.0-0.7); EOSINOPHILS % (AUTO) 1.5 %; HGB - HEMOGLOBIN 12.3 g/dL (14.0-18.0); LYMPHOCYTES % (AUTO) 19.2 %; MEAN CORPUSCULAR HEMOGLOBIN 32.1 pg (27.0-31.0); MEAN CORPUSCULAR HGB CONC 34.1 g/dL (32.0-36.0); MEAN CORPUSCULAR VOLUME 94.1 fL (80.0-94.0); MEAN PLATELET VOLUME 7.3 fL (7.4-11.4); MONOCYTES # (AUTO) 1.3 10^3/uL (0.0-1.0); MONOCYTES % (AUTO) 12.2 %; NEUTROPHILS % (AUTO) 66.2 %; PLT - PLATELET COUNT 289 10^3/uL (130-450); RED BLOOD COUNT 3.83 10^6/uL (4.70-6.10); RED CELL DISTRIBUTION WIDTH 19.7 % (12.0-15.0); WHITE BLOOD COUNT 10.5 x10^3/uL (4.8-10.8)
[2018-09-10 14:58] LABS: ALBUMIN 3.4 g/dL (3.2-5.5); ALBUMIN/GLOBULIN RATIO 0.9 (1.0-2.2); ALKALINE PHOSPHATASE 103 IU/L (42-121); ALT ALANINE AMINOTRANSFERASE 12 IU/L (10-60); AST ASPARTATE AMINOTRANSFERASE 21 IU/L (10-42); BILIRUBIN,TOTAL 0.9 mg/dL (0.2-1.0); BUN - BLOOD UREA NITROGEN 22 mg/dL (6-20); CARBON DIOXIDE - CO2 30 mmol/L (21-32); CHLORIDE 92 mmol/L (101-111); GFR - MDRD 75 (>89); GLUCOSE 144 mg/dL (70-100); LIPASE 30 U/L (22-51); SODIUM 136 mmol/L (135-145); TOTAL PROTEIN 7.1 g/dL (6.7-8.2)
[2018-09-10] MEDS ORDERED: POTASSIUM CHLORIDE 20 MEQ TABLET PO STA (15:01)
[2018-09-10 15:06] LABS: GLUCOSE, URINE (UA) NEGATIVE (NEGATIVE); KETONES,URINE (UA) TRACE mg/dL (NEGATIVE); LEUKOCYTE ESTERASE, URINE NEGATIVE (NEGATIVE); NITRITE,URINE NEGATIVE (NEGATIVE); OCCULT BLOOD,URINE TRACE-LYSE (NEGATIVE); PH,URINE 6.5 PH (5.0-7.5); PROTEIN,URINE >=300 mg/dL (NEGATIVE); UROBILINOGEN,URINE 0.2 (NORMAL) E.U./dL (NORMAL)
[2018-09-10 15:11] LABS: BILIRUBIN,URINE NEGATIVE (NEGATIVE); CLARITY,URINE CLEAR (CLEAR); ICTOTEST,URINE NEGATIVE
[2018-09-10 15:18] LABS: BACTERIA,URINE None Seen /HPF (None Seen); CASTS, URINE 0-2 Hyaline Casts /LPF; RBC,URINE None Seen /HPF (0-5); SQUAMOUS EPITHELIAL CELL,UR RARE Squamous (<= Few)
[2018-09-10 16:53] VITALS: BP 164/83
[2018-09-10 22:30] LABS: TRICHOMONAS VAGINALIS DNA NEGATIVE (NEGATIVE)
== END 2018-09-10 16:55 | disposition home or self-care (01) ==
LOC: ED 13:36
DX: C79.31 Secondary malignant neoplasm of brain (principal); C34.11 Malignant neoplasm of upper lobe, right bronchus or lung; F03.90 Unspecified dementia, unspecified severity, without behavioral disturbance, psychotic disturbance, mood disturbance, and anxiety; E87.6 Hypokalemia; F32.9 Major depressive disorder, single episode, unspecified; I10 Essential (primary) hypertension; Z86.73 Personal history of transient ischemic attack (TIA), and cerebral infarction without residual deficits; F17.200 Nicotine dependence, unspecified, uncomplicated
CPT/HCPCS: 36415; 70450; 71046; 80053; 80320; 81001; 82140; 83690; 85025; 87491; 87591; 87661; 96361; 96374; 99283; 99284; A9270; 81003; 87086

== ENCOUNTER 2018-09-12 09:17 | Outpatient (CLI) | payer OTHER | END 2018-09-12 09:18 | disposition critical access hospital (66) | LOC: EMS 09:17 | PROVIDERS: ATTEND Surgery | DX: R53.1 Weakness (principal); R41.0 Disorientation, unspecified | CPT/HCPCS: A0425; A0429 ==

== ENCOUNTER 2018-09-12 09:46 | Emergency (ER) | payer OTHER ==
[2018-09-12] MEDS ORDERED: SODIUM CHLORIDE 0.9% 1,000 ML IV ONE ×2 (09:58→13:19)
--- NOTE | 2018-09-12 10:09 | ED Physician Documentation ---
PD HPI ALTERED MENTAL STATUS - Stated complaint Stated Complaint: WEAKNESS - Chief complaint Chief Complaint: Neuro - History obtained from History obtained from: Patient, EMS - History of Present Illness Timing - onset: How many days ago (3) Timing - details: Still present Quality / character: Confused Associated symptoms: General weakness Contributing factors: Cancer Basline status: Ambulatory, Diminished alertness Recently seen: Emergency Dept (2 days ago.) - Additional information Additional information: The patient is a 62-year-old male with history of CVA, and more recently diagnosed with stage IV lung cancer with brain metastases, who presents via ambulance because of generalized weakness and confusion that has been increasing over the past 3 days. He has had no urine output since 2 days ago. He was seen in the emergency department here 2 days ago for mental confusion, and was found to be hypokalemic and volume depleted at that time. His mental status improved after IV fluid hydration. He is undergoing immunotherapy for lung cancer, and has recently completed chemotherapy. The patient denies pain, he denies recent fever, cough, or vomiting. It is uncertain how reliable review of systems is from him, due to his confusion. Review of Systems Unable to obtain: Confused Constitutional: reports: Fatigue. denies: Fever Eyes: denies: Irritation Ears: denies: Tinnitus/ringing Nose: denies: Congestion Throat: denies: Sore throat Cardiac: denies: Chest pain / pressure Respiratory: denies: Dyspnea, Cough GI: denies: Abdominal Pain, Vomiting, Diarrhea : reports: Unable to Void Musculoskeletal: denies: Back pain, Extremity pain Neurologic: reports: Generalized weakness, Confused. denies: Headache PD PAST MEDICAL HISTORY - Past Medical History Cardiovascular: Hypertension Respiratory: None, Other (Stage IV lung cancer with brain mets.) Neuro: CVA Endocrine/Autoimmune: None GI: None : None HEENT: None Psych: None Musculoskeletal: None Derm: None - Past Surgical History Past Surgical History: Yes - Present Medications Home Medications: Ambulatory Orders Medication Instructions Recorded Confirmed Folic Acid 1 mg PO DAILY 06/12/18 09/05/18 Levetiracetam [Keppra] 750 mg PO BID 06/12/18 09/05/18 Magnesium 500 mg PO DAILY 06/12/18 09/05/18 Lactulose [Generlac] 10 gm PO QID #150 ml 08/12/18 09/05/18 Ondansetron HCl [Zofran] 8 mg ORAL PRN PRN 08/12/18 09/05/18 Megestrol Acetate 20 ml PO DAILY #500 ml 09/10/18 - Allergies Allergies/Adverse Reactions: Allergies Allergy/AdvReac Type Severity Reaction Status Date / Time No Known Drug Allergies Allergy Verified 09/12/18 09:51 - Living Situation Living Situation: reports: With family Living Arrangement: reports: At home - Social History Does the pt smoke?: Yes Smoking Status: Current every day smoker Does the pt drink ETOH?: Yes Does the pt have substance abuse?: No - Immunizations Immunizations are current?: Yes - POLST Patient has POLST: No PD ED PE NORMAL - Vitals Vital signs reviewed: Yes (hypertensive) - General General: Other (Alert, confused, male who appears older than his stated age.) - HEENT HEENT: Atraumatic, PERRL, EOMI, Pharynx benign, Other (Dry oral mucosa.) - Neck Neck: Supple, no meningeal sign, No bony TTP, No adenopathy, No JVD - Cardiac Cardiac: RRR - Respiratory Respiratory: No respiratory distress, Clear bilaterally - Abdomen Abdomen: Soft, Other (Distended bladder, with associated suprapubic tenderness to palpation.) - Back Back: No CVA TTP - Derm Derm: No rash - Extremities Extremities: No edema, No calf tenderness / cord - Neuro Neuro: Other (Alert, but confused, stating the year is 2010, and not able to tell me his age. He has mild tremulousness and generalized weakness, with no focal motor or sensory deficit detected.) Eye Opening: Spontaneous Motor: Obeys Commands Verbal: Confused GCS Score: 14 Results - Vitals Vitals: Vital Signs - 24 hr 09/12/18 09/12/18 09/12/18 09:50 10:16 11:50 Temperature 36.6 C Heart Rate 105 H 105 H 101 H Respiratory 18 18 18 Rate Blood Pressure 192/97 H 197/99 H O2 Saturation 99 99 99 09/12/18 14:10 Temperature Heart Rate 100 Respiratory 18 Rate Blood Pressure 195/106 H O2 Saturation 99 Oxygen O2 Source Room air - Labs Labs: Laboratory Tests 09/12/18 09/12/18 09/12/18 10:08 10:10 10:10 WBC 10.1 RBC 3.83 L Hgb 12.1 L Hct 36.1 L MCV 94.3 H MCH 31.7 H MCHC 33.6 RDW 19.2 H Plt Count 273 MPV 7.1 L Neut # (Auto) 6.7 H Lymph # (Auto) 2.0 [place] # (Auto) 1.1 H Eos # (Auto) 0.2 Baso # (Auto) 0.1 Absolute Nucleated RBC 0.00 Nucleated RBC % 0.0 Sodium 139 Potassium 3.4 L Chloride 96 L Carbon Dioxide 29 Anion Gap 14.0 H BUN 16 Creatinine 0.8 Estimated GFR (MDRD) 97 Glucose 118 H Lactic Acid Calcium 9.9 Total Bilirubin 1.0 AST 22 ALT 14 Alkaline Phosphatase 100 Troponin I Total Protein 7.1 Albumin 3.4 Globulin 3.7 Albumin/Globulin Ratio 0.9 L Lipase 27 Urine Color YELLOW Urine Clarity CLEAR Urine pH 6.0 Ur Specific [place] 1.025 Urine Protein 100 H Urine Glucose (UA) NEGATIVE Urine Ketones 15 H Urine Occult Blood TRACE-INTA Urine Nitrite NEGATIVE Urine Bilirubin NEGATIVE Urine Urobilinogen 0.2 (NORMAL) Ur Leukocyte Esterase NEGATIVE Urine RBC 0-5 Urine WBC 0-3 Ur Squamous Epith Cells NONE SEEN Urine Bacteria Rare Ur Microscopic Review INDICATED Urine Culture Comments NOT INDICATED 09/12/18 09/12/18 10:10 10:10 WBC RBC Hgb Hct MCV MCH MCHC RDW Plt Count MPV Neut # (Auto) Lymph # (Auto) [place] # (Auto) Eos # (Auto) Baso # (Auto) Absolute Nucleated RBC Nucleated RBC % Sodium Potassium Chloride Carbon Dioxide Anion Gap BUN Creatinine Estimated GFR (MDRD) Glucose Lactic Acid 1.0 Calcium Total Bilirubin AST ALT Alkaline Phosphatase Troponin I < 0.04 Total Protein Albumin Globulin Albumin/Globulin Ratio Lipase Urine Color Urine Clarity Urine pH Ur Specific [place] Urine Protein Urine Glucose (UA) Urine Ketones Urine Occult Blood Urine Nitrite Urine Bilirubin Urine Urobilinogen Ur Leukocyte Esterase Urine RBC Urine WBC Ur Squamous Epith Cells Urine Bacteria Ur Microscopic Review Urine Culture Comments PD MEDICAL DECISION MAKING - ED course Complexity details: reviewed old records, reviewed results, re-evaluated patient, considered differential, d/w patient, d/w family, d/w oracle application consultant ED course: Patient's presentation is significant for mental status change with confusion that has been ongoing for the past 4 days at least. He was seen here 2 days ago and a head CT at that time revealed no acute abnormalities. He was treated with IV fluids for dehydration and his mental status improved at that time. Family is concerned because he continues to decline at home, not eating or d rinking, or getting up to urinate. On his presentation today he had acute urinary retention with a liter of urine in his bladder. He was again dehydrated. While his symptoms have improved somewhat with IV hydration in the emergency department he remains confused. I discussed his condition with Dr. Castle, his oncologist, who recommends that the patient have free cortisol level drawn as well as TSH. If the family prefers, he agrees that the patient should be seen at the [facility] where he is well-known. I discussed this with the family and they expressed strong sentiment to take the patient to the [facility]. This is probably the best course of action since we do not have specialty care at this facility. I do not think he requires ambulance transport, so is being discharged to be transported by family. The Stone catheter will remain in place. DVD copies of his imaging studies from 2 days ago were given to the family. Additionally copies of his lab work from today were given to them. Departure - Departure Disposition: 01 Home, Self Care Clinical Impression: Acute urinary retention, Confusion, Dehydration, Lung cancer metastatic to brain Condition: Stable Instructions: ED Confusion, ED Dehydration, ED Catheter Care Stone Follow-Up: LV CASTLE MD, PHD [Physician No Access] - Jon Telles MD [Primary Care Provider] - Comments: Keep the Stone catheter in place, and keep the leg bag lower than the pelvic area. I have discussed your condition with your oncologist at the [facility], and he agrees with your preference to go to the [facility] for further evaluation and treatment.
[2018-09-12 10:18] LABS: BASOPHILS # (AUTO) 0.1 10^3/uL (0.0-0.1); BASOPHILS % (AUTO) 1.3 %; EOSINOPHILS # (AUTO) 0.2 10^3/uL (0.0-0.7); EOSINOPHILS % (AUTO) 1.8 %; HGB - HEMOGLOBIN 12.1 g/dL (14.0-18.0); LYMPHOCYTES % (AUTO) 19.8 %; MEAN CORPUSCULAR HEMOGLOBIN 31.7 pg (27.0-31.0); MEAN CORPUSCULAR HGB CONC 33.6 g/dL (32.0-36.0); MEAN CORPUSCULAR VOLUME 94.3 fL (80.0-94.0); MEAN PLATELET VOLUME 7.1 fL (7.4-11.4); MONOCYTES # (AUTO) 1.1 10^3/uL (0.0-1.0); MONOCYTES % (AUTO) 10.7 %; NEUTROPHILS # (AUTO) 6.7 10^3/uL (1.5-6.6); NEUTROPHILS % (AUTO) 66.4 %; PLT - PLATELET COUNT 273 10^3/uL (130-450); RED BLOOD COUNT 3.83 10^6/uL (4.70-6.10); RED CELL DISTRIBUTION WIDTH 19.2 % (12.0-15.0); WHITE BLOOD COUNT 10.1 x10^3/uL (4.8-10.8)
[2018-09-12 10:25] LABS: GLUCOSE, URINE (UA) NEGATIVE (NEGATIVE); KETONES,URINE (UA) 15 mg/dL (NEGATIVE); LEUKOCYTE ESTERASE, URINE NEGATIVE (NEGATIVE); NITRITE,URINE NEGATIVE (NEGATIVE); OCCULT BLOOD,URINE TRACE-INTA (NEGATIVE); PROTEIN,URINE 100 mg/dL (NEGATIVE); UROBILINOGEN,URINE 0.2 (NORMAL) E.U./dL (NORMAL)
[2018-09-12 10:31] LABS: ALBUMIN 3.4 g/dL (3.2-5.5); ALBUMIN/GLOBULIN RATIO 0.9 (1.0-2.2); CALCIUM 9.9 mg/dL (8.5-10.3); CREATININE 0.8 mg/dL (0.6-1.2); TOTAL PROTEIN 7.1 g/dL (6.7-8.2)
[2018-09-12 10:32] LABS: CLARITY,URINE CLEAR (CLEAR)
[2018-09-12 10:35] LABS: BILIRUBIN,URINE NEGATIVE (NEGATIVE); ICTOTEST,URINE NEGATIVE
[2018-09-12 10:45] LABS: BACTERIA,URINE Rare /HPF (None Seen); RBC,URINE 0-5 /HPF (0-5); SQUAMOUS EPITHELIAL CELL,UR NONE SEEN (<= Few)
[2018-09-12 14:10] VITALS: BP 195/106
== END 2018-09-12 14:51 | disposition home or self-care (01) ==
LOC: EDUNIT# → ED 09:46
DX: E86.0 Dehydration (principal); R33.9 Retention of urine, unspecified; R41.0 Disorientation, unspecified; C34.90 Malignant neoplasm of unspecified part of unspecified bronchus or lung; C79.31 Secondary malignant neoplasm of brain; I10 Essential (primary) hypertension; Z86.73 Personal history of transient ischemic attack (TIA), and cerebral infarction without residual deficits; F17.200 Nicotine dependence, unspecified, uncomplicated
CPT/HCPCS: 36415; 51702; 80053; 81001; 81003; 83605; 83690; 84484; 85025; 87086; 96360; 99284; 99285